=== PATIENT | female | born 1965 | race Two or more races ===

== ENCOUNTER 2024-07-20 07:29 | Outpatient (CLI) | payer OTHER | END 2024-07-20 07:36 | disposition home or self-care (01) | LOC: SONOGRAMA 07:29 | PROVIDERS: ATTEND Pathology Anatomic Pathology & Clinical Pathology | DX: D44.0 Neoplasm of uncertain behavior of thyroid gland (principal); E04.1 Nontoxic single thyroid nodule ==

== ENCOUNTER 2024-12-07 09:11 | Outpatient (CLI) | payer OTHER | END 2024-12-07 09:14 | disposition home or self-care (01) | LOC: SONOGRAMA 09:11 | PROVIDERS: ATTEND Pathology Anatomic Pathology & Clinical Pathology | DX: D44.0 Neoplasm of uncertain behavior of thyroid gland (principal) ==